=== PATIENT | female | born 1950 | race Caucasian/White ===

== ENCOUNTER → 2016-09-29 | Outpatient (CLI) | payer OTHER ==
[~2016-09-29] MED LIST: ALB/IPRATROPIUM/1 E1 NEB; AMLODIPINE BESY10 MG PO; COMBIVENT INH14.7 GM INH; COMBIVENT RESPIM4 GM; CRESTOR10 MG DOB; CRESTOR40 MG PO; ELAVIL; FLOVENT HFA12 GM INH; FLUOXETINE HCL60 MG PO; GABAPENTIN800 MG PO; GLUCOTROL XL10 MG PO; HUMALOG100 U/ML INJ; HYDROCODON-ACE1 EAC1 PO; HYDROCODONE/APA1 T16 PO; KLONOPIN1 MG PO; LANTUS100 U/ML INJ; LEVEMIR SUBQ; LEVOTHYROXINE; LOVAZA1 G PO; METFORMIN HCL500 M2 PO; METFORMIN PO; OMEPRAZOLE20 M2 PO; OXYGEN; PREVACID15 MG PO; PROZAC10 MG PO; SYNTHROID0.05 MG PO; TRADJENTA5 MG PO; TRIAMTERENE-HC1 EACH PO; VOLTAREN100 GM TP
--- NOTE | ~2016-09-29 | CR181 ---
[facility] A Service of [facility] RADIOLOGY TEXT RESULTS PATIENT: LEDY BILLINGSLEY LOCATION: [facility] : 50 UNIT #: [id number] AGE: [address]: Liberty Nelson HORSERADISH GRINDER SEX: F ORDER DR: [id number] [facility] [address] [place], [place] [address] [id number] O MR#: [id number] Acc #: [id number] NAME: LEDY BILLINGSLEY : 1950 SEX: F STUDY DATE/TIME: 09/29/2016 10:54 UNIT: [facility] ROOM: STUDY DESCRIPTION: CR Lumbar Spine 2 or 3 Views Attending Physician: Liberty Nelson A.P.R.N. Referring Physician: Liberty Nelson A.P.R.N. Ordering Physician: Liberty Nelson A.P.R.N. Primary Care Physician: Placido Gaspar M.D. MEDICAL IMAGING REPORT This report is preliminary unless electronic signature is present EXAM Lumbar spine 3 views INDICATIONS Low back pain for 2 years. COMPARISON 05/30/2013 FINDINGS Vertebral body heights are maintained. Stable minimal disc space disease at L3-4 and mild narrowing at L4-5. Lower lumbar spine facet arthropathy. Vascular calcifications. IMPRESSION Stable mild degenerative changes. Dictated by... Jean Mariano M.D. THIS IS AN ELECTRONICALLY VERIFIED REPORT Jean Mariano M.D. at 09/29/2016 5:30 PM [place] TD: 09/29/2016 17:08 JOB #: [id number] MEDICAL IMAGING REPORT Page 1 of 1 COPY
--- NOTE | ~2016-09-29 | CR63 ---
[facility] A Service of [facility] & [facility] RADIOLOGY TEXT RESULTS PATIENT: LEDY BILLINGSLEY LOCATION: [facility] : 50 UNIT #: [id number] AGE: [address]: Liberty Nelson [employer] LAYOUT PERSON SEX: F ORDER DR: [id number] [facility] [address] [place], [place] [address] [id number] O MR#: [id number] Acc #: [id number] NAME: LEDY BILLINGSELY : 1950 SEX: F STUDY DATE/TIME: 09/29/2016 10:54 UNIT: [facility] ROOM: STUDY DESCRIPTION: CR Chest 2 View Attending Physician: Liberty Nelson A.P.R.N. Referring Physician: Liberty Nelson A.P.R.N. Ordering Physician: Liberty Nelson A.P.R.N. Primary Care Physician: Placido Gaspar M.D. MEDICAL IMAGING REPORT This report is preliminary unless electronic signature is present EXAM PA and lateral chest INDICATIONS Cough and low back pain chronically for 2 years. COMPARISON 07/18/2015 FINDINGS There is minimal scarring/atelectasis in the left base. No airspace consolidation. Calcified mediastinal lymph nodes. Heart size stable. Atherosclerotic calcification of the aorta. Degenerative change thoracic spine. IMPRESSION No active disease. Dictated by... Jean Mariano M.D. THIS IS AN ELECTRONICALLY VERIFIED REPORT Jean Mariano M.D. at 09/29/2016 5:30 PM [place] TD: 09/29/2016 16:58 JOB #: [id number] MEDICAL IMAGING REPORT Page 1 of 1 COPY
== END | disposition home or self-care (01) ==
LOC: CRAD 10:24
DX: R05 Cough (principal); M54.5 Low back pain; M47.896 Other spondylosis, lumbar region
CPT/HCPCS: 71020; 72100